=== PATIENT | female | born 1960 | race Asian ===

== ENCOUNTER 2023-08-21 08:58 | Emergency (ER) | payer OTHER ==
[~2023-08-21] VITALS: Ht 149.9 cm; Wt 72.6 kg
[~2023-08-21 08:58] MED LIST: AMLO5TAB4 PO; HYDR12.55 PO; PRO40 PO
[2023-08-21 09:00] VITALS: BP_SYST 204; PULSE 87; RESP 18; TEMP 97.9; O2SAT 99
[2023-08-21] MEDS ORDERED: amLODIPine BESYLATE 10 MG TABLET PO ONE (09:15)
[2023-08-21] MEDS ORDERED: ACYC400T19 PO (09:23)
== END 2023-08-21 09:34 | disposition home or self-care (01) ==
LOC: SED 08:58
DX: B02.9 Zoster without complications (principal); R21 Rash and other nonspecific skin eruption; K21.9 Gastro-esophageal reflux disease without esophagitis; I10 Essential (primary) hypertension; Z79.899 Other long term (current) drug therapy
CPT/HCPCS: 99283

== ENCOUNTER 2024-07-25 23:46 | Emergency (ER) | payer OTHER ==
[~2024-07-25] VITALS: Ht 152.4 cm; Wt 72.6 kg
[~2024-07-25 23:46] MED LIST changes: +ACYC400T19 PO
[2024-07-26 00:04] VITALS: BP_SYST 155; PULSE 95; RESP 16; TEMP 98.2; O2SAT 100
[2024-07-26 00:57] LABS: BILIRUBIN,URINE 2+ (NEGATIVE); BLOOD, URINE 3+ (NEGATIVE); GLUCOSE,URINE NEGATIVE (NEGATIVE); KETONES,URINE 3+ (NEGATIVE); LEUKOCYTE ESTERASE ,URINE TRACE (NEGATIVE); NITRITE, URINE POSITIVE (NEGATIVE); PH,URINE 5.5 (5.0-8.0); PROTEIN URINE 2+ (NEGATIVE); UROBILINOGEN,URINE 0.2 (0.2-1.0)
[2024-07-26 01:04] LABS: COLOR,URINE BROWN (YELLOW)
[2024-07-26 01:05] LABS: CLARITY/URINE CLOUDY (CLEAR); RBC,URINE >100 /HPF (0-3)
[2024-07-26 01:06] LABS: BACTERIA,URINE MODERATE /HPF (None Seen)
[2024-07-26 01:32] LABS: BASOPHILS % (AUTO) 0.1 % (0.0-2.0); EOSINOPHILS # (AUTO) 0.1 K/uL (0.0-0.4); EOSINOPHILS % (AUTO) 0.5 % (0.0-4.0); HEMATOCRIT 46.2 % (36-48); HEMOGLOBIN 15.8 g/dL (12.0-16.0); LYMPHOCYTES # (AUTO) 1.1 K/uL (1.0-5.5); LYMPHOCYTES % (AUTO) 11.4 % (20.5-51.5); MEAN CORPUSCULAR HEMOGLOBIN 28 pg (27-31); MEAN CORPUSCULAR HGB CONC 34 % (32-36); MEAN CORPUSCULAR VOLUME 82 fL (79.0-98.0); MONOCYTES # (AUTO) 0.7 K/uL (0.0-1.0); MONOCYTES % (AUTO) 6.9 % (1.7-9.3); NEUTROPHILS # (AUTO) 8.1 K/uL (1.8-7.7); NEUTROPHILS % (AUTO) 81.1 % (40.0-70.0); PLATELET COUNT (AUTO) 343 K/uL (130-430); RED BLOOD CELL COUNT(AUTO) 5.61 MIL/uL (4.2-6.2); RED CELL DISTRIBUTION WIDTH 14.4 % (9.0-15.0); WHITE BLOOD COUNT (AUTO) 9.9 K/uL (4.8-10.8)
[2024-07-26] MEDS: cefTRIAXone 1 GM IVPB PREMIX 50 ML IV ONE (01:51)
[2024-07-26 01:52] LABS: PROTHROMBIN TIME 10.7 SECS (9.5-12.5)
[2024-07-26 01:55] LABS: ANION GAP 12 (5-15); CALCIUM 8.9 mg/dL (8.4-11.0); CARBON DIOXIDE 26 mmol/L (23-29); CHLORIDE 100 mmol/L (98-107); CREATINE KINASE, TOTAL 664 U/L (26-192); CREATININE 0.85 mg/dL (0.55-1.30); GFR AFRICAN AMERICAN 86 mL/min (>90); GLUCOSE 253 mg/dL (74-106); POTASSIUM 3.2 mmol/L (3.5-5.1); SODIUM SERUM 138 mmol/L (136-145); UREA NITROGEN, BLOOD 23 mg/dL (8-21)
[2024-07-26 02:00] LABS: GFR NON AFRICAN-AMERICAN 71 mL/min (>90)
[2024-07-26 02:30] VITALS: BP_SYST 147; PULSE 76; RESP 17; TEMP 98.2; O2SAT 96
[2024-07-26 03:08] LABS: CKMB RELATIVE INDEX 1.4 (0.0-2.9); CREATINE KINASE MB 9.4 ng/mL (0-3.6)
== END 2024-07-26 02:30 | disposition short-term general hospital (02) ==
LOC: SED 23:46
DX: S06.5XAA Traumatic subdural hemorrhage with loss of consciousness status unknown, initial encounter (principal); N39.0 Urinary tract infection, site not specified; K21.9 Gastro-esophageal reflux disease without esophagitis; I10 Essential (primary) hypertension; Z20.822 Contact with and (suspected) exposure to COVID-19; Z79.899 Other long term (current) drug therapy; Z79.2 Long term (current) use of antibiotics; W18.39XA Other fall on same level, initial encounter; Y93.89 Activity, other specified; Y92.89 Other specified places as the place of occurrence of the external cause; Y99.8 Other external cause status
CPT/HCPCS: 99285; 87426; 80048; 81001; 82550; 82553; 85025; 85610; 85730; 87040; 87086; 84484; 36415; 83605; 81000; 96365; 70450; 71045; 93005; 81015; J0696